=== PATIENT | female | born 1995 | race Caucasian/White ===

== ENCOUNTER 2018-02-26 01:40 | Emergency (ER) | payer OTHER, MEDICAID ==
[2018-02-26] MEDS: KETOROLAC 60 MG INJ IM (03:11)
[2018-02-26] MEDS: METOCLOPRAMIDE 10 MG TAB PO (03:11)
[2018-02-26] MEDS: DIPHENHYDRAMINE 50 MG CAP PO (03:11)
== END 2018-02-26 03:50 | disposition home or self-care (01) ==
LOC: FTE 01:40
DX: R51 Headache (principal); R11.2 Nausea with vomiting, unspecified
CPT/HCPCS: 81025; 96372; 99284-25